=== PATIENT | male | born 1990 | race Two or more races ===

== ENCOUNTER 2018-02-22 15:13 | Emergency (ER) | payer BC, MEDICAID ==
[~2018-02-22] VITALS: Ht 177.8 cm; Wt 92.4 kg
[2018-02-22 15:20] VITALS: BP 147/82
[2018-02-22] MEDS ORDERED: DEXAMETHASONE 4 MG TABLET PO ONE (16:00)
[2018-02-22] MEDS ORDERED: DEXAMETHASONE 4 MG TABLET ONE (16:20)
== END 2018-02-22 17:13 | disposition home or self-care (01) ==
LOC: ED 16:50
DX: J02.0 Streptococcal pharyngitis (principal)
CPT/HCPCS: 87081; 87880; 99284

== ENCOUNTER 2019-07-22 10:45 | Emergency (ER) | payer MEDICAID ==
[~2019-07-22] VITALS: Ht 177.8 cm; Wt 95.4 kg
[2019-07-22 10:47] VITALS: BP 154/90
--- NOTE | 2019-07-22 12:01 | NUR ---
Patient/Caregiver given discharge instructions and they have confirmed that they understand the instructions. Patient ambulatory with steady gait. PT LEFT WITH ALL PERSONAL BELONGINGS.
== END 2019-07-22 12:04 | disposition home or self-care (01) ==
LOC: ED 12:00
DX: B34.9 Viral infection, unspecified (principal); F17.200 Nicotine dependence, unspecified, uncomplicated
CPT/HCPCS: 71046; 87081; 87147; 87880; 99284

== ENCOUNTER 2019-07-30 11:02 | Emergency (ER) | payer MEDICAID ==
[~2019-07-30] VITALS: Ht 177.8 cm; Wt 98.9 kg
[2019-07-30 11:06] VITALS: BP 156/77
[2019-07-30] MEDS ORDERED: AZITHROMYCIN 500 MG TABLET PO ONE (11:30)
[2019-07-30] MEDS ORDERED: CEFTRIAXONE 250 MG IM ONE (11:30)
--- NOTE | 2019-07-30 11:36 | NUR ---
NON TOXIC PATIENT PRESENTS TO ED WITH C/O "I THINK I HAVE AN STD." STATES BURING WITH URINATION THOUGH NO DRAINAGE. STATES HE HAVE BEEN EXPOSED ABOUT 2 MONTHS AGO AND WANTS TO BE TESTED. DENIES ABD PAIN, LBP, AND N/V.
[2019-07-30] MEDS ORDERED: AZITHROMYCIN 250 MG TABLET ONE (11:44)
[2019-07-30] MEDS ORDERED: CEFTRIAXONE 250 MG ONE (11:44)
--- NOTE | 2019-07-30 12:09 | NUR ---
PATIENT NOT IN ROOM AT THIS TIME.
--- NOTE | 2019-07-30 12:22 | NUR ---
PT CONTINUES TO NOT BE IN ROOM. UNABLE TO MEDICATE. ASSUMED PATIENT HAS ELOPPED.
== END 2019-07-30 12:25 | disposition home or self-care (01) ==
LOC: ED 11:20
DX: N34.1 Nonspecific urethritis (principal)
CPT/HCPCS: 87491; 87591; 99283

== ENCOUNTER 2021-01-06 18:42 | Emergency (ER) | payer MEDICAID ==
[~2021-01-06] VITALS: Ht 170.2 cm; Wt 102.6 kg
[2021-01-06 18:45] VITALS: BP 147/61
[2021-01-06] MEDS ORDERED: LIDOCAINE-MPF 1%, 5ML ONE (19:02)
[2021-01-06] MEDS ORDERED: LIDOCAINE-MPF 1%, 5ML INFIL ONE (19:30)
--- NOTE | 2021-01-06 19:32 | NUR ---
WOUND CLEANED. GIVEN DC INST C RX. VERBALIZES UNDERSTANDING. AMBULATORY TO MANDI Moraes STEADY GAIT.
== END 2021-01-06 19:34 | disposition home or self-care (01) ==
LOC: ED 19:12
DX: S60.450A Superficial foreign body of right index finger, initial encounter (principal); S61.240A Puncture wound with foreign body of right index finger without damage to nail, initial encounter; X58.XXXA Exposure to other specified factors, initial encounter; Y93.89 Activity, other specified; Y92.89 Other specified places as the place of occurrence of the external cause; Y99.8 Other external cause status
CPT/HCPCS: 10120; 99285